=== PATIENT | female | born 1980 ===

== ENCOUNTER 2021-02-17 11:45 | Inpatient (IN) | payer OTHER ==
[~2021-02-17] VITALS: Ht 170.2 cm; Wt 84.8 kg
[2021-02-17] MEDS ORDERED: ATORVASTATIN CA10 MG PO (15:07)
== END 2021-02-20 09:58 | disposition home or self-care (01) | DRG 743 ==
LOC: O/R 02-18 09:03 → SURH 02-18 11:45 → OB/GYN 02-18 15:47 → SURH 02-18 20:00 → OB/GYN 02-20 09:58
PROVIDERS: ADMIT Specialist; ATTEND Specialist
PROC: 0UT70ZZ Resection of Bilateral Fallopian Tubes, Open Approach (ICD-10-PCS; 2021-02-18)
PROC: 0UT90ZZ Resection of Uterus, Open Approach (ICD-10-PCS; principal; 2021-02-18 20:00)
DX: D25.2 Subserosal leiomyoma of uterus (principal); N72 Inflammatory disease of cervix uteri; N83.8 Other noninflammatory disorders of ovary, fallopian tube and broad ligament; D50.0 Iron deficiency anemia secondary to blood loss (chronic); N92.1 Excessive and frequent menstruation with irregular cycle; E78.5 Hyperlipidemia, unspecified